=== PATIENT | male | born 1960 | race Caucasian/White ===

== ENCOUNTER 2018-05-13 19:22 | Emergency (ER) | END 2018-05-13 22:21 | disposition home or self-care (01) ==

== ENCOUNTER 2019-01-16 23:25 | Emergency (ER) | payer BC ==
[~2019-01-16] VITALS: Ht 172.7 cm; Wt 88.6 kg
[~2019-01-16 23:25] MED LIST: ASPI-831 GTB; GEMF600T PO; MELO7.5T38 PO; NIAC500T8 PO; UNKNOWN BP MED; UNKNOWN INSULIN SQ
[2019-01-16 23:27] VITALS: Ht 172.7 cm; Wt 88.6 kg
[2019-01-16] MEDS ORDERED: SOD CHLORIDE 0.9% 500 ML IV STA (23:32)
--- NOTE | 2019-01-16 23:32 | ERD ---
ER Documentation Chief Complaint Chief Complaint CP 03/30 1800hrs - down to 07/30 after 3 nitros HPI 58-year-old man with history of CAD status post CABG in 2013 brought in by EMS from home for pressure-like chest discomfort beginning a few hours ago at home while at rest. Patient states the pain has been constant nonradiating nonex ertional, he has had no shortness of breath or dizziness, no diaphoresis, no vomiting, no fevers or chills, no cough. EMS administered aspirin and 3 doses of nitroglycerin with some improvement in his symptoms and he was transported here without further complications ROS All systems reviewed and are negative except as per history of present illness. Medications Home Meds Active Scripts Meloxicam* (Meloxicam*) 7.5 Mg Tablet, 7.5 MG PO DAILY, #30 TAB Prov:SUPA JOSE PA-C 05/13/18 Reported Medications [Unknown Insulin] No Conflict Check, SQ 11/06/13 [Unknown Bp Med] No Conflict Check 11/06/13 Aspirin (Aspirin) 81 Mg Chew, 81 MG GTB 11/06/13 Niacin* (Niacin* ER) 500 Mg Tablet.er, 500 MG PO 11/06/13 Gemfibrozil* (Lopid*) 600 Mg Tablet, 600 MG PO 11/06/13 Allergies Allergies: Coded Allergies: No Known Allergy (Unverified , 11/05/13) PMhx/Soc Hypertension, hyperlipidemia, diabetes mellitus, status post coronary artery bypass graft in 2013 History of Surgery: Yes (CABG) Anesthesia Reaction: No Hx Neurological Disorder: No Hx Respiratory Disorders: No Hx Cardiac Disorders: Yes (CP, HYPERCHOLESTEROLEMIA) Hx Psychiatric Problems: No Hx Miscellaneous Medical Probl: Yes (DM) Hx Alcohol Use: Yes Hx Substance Use: No Hx Tobacco Use: Yes FmHx Family History: No diabetes Physical Exam Vitals Vital Signs Date Temp Pulse Resp B/P (MAP) Pulse Ox O2 O2 Flow FiO2 Time Delivery Rate 01/17/19 75 16 164/80 99 Room Air 01:30 (108) 01/17/19 79 21 161/82 98 Room Air 01:00 (108) 01/17/19 78 18 157/86 99 Room Air 00:44 (109) 01/16/19 97.3 84 14 167/92 100 23:27 (117) Physical Exam GENERAL: Well-developed, well-nourished, well-hydrated, in no apparent distress, looks nontoxic in appearance HEENT: Moist mucous membranes, pink conjunctiva, no cervical spine tenderness or step-off deformities, no goiter, no jaundice or icterus, extraocular movements intact without pain. No submandibular induration, and no pharyngeal erythema NEURO: Alert and oriented 3, cranial nerves II through XII intact bilaterally, pupils equal round reactive to light, no focal deficits or facial asymmetry, sensation intact distally Strength 5/5 in upper and lower extremities bilaterally CARDIAC: Regular rate and rhythm, no murmurs rubs or gallops LUNGS: Clear bilaterally no wheezing crackles or stridor ABDOMEN: Soft nontender, no guarding, no rigidity, no rebound, no psoas sign no obturator sign. Normoactive bowel sounds SKIN: Warm and dry to touch, no abrasions, contusions, or hematomas, no lacerations, no ecchymosis, no target lesions, and without ulcers EXTREMITIES: No clubbing cyanosis or edema, calves are bilaterally symmetrical, no Homans sign, no popliteal cord sign. Distal pulses equal and bilateral PSYCH: Normal affect without agitation or irritability Result Diagram: 01/16/19232701/16/192327 Results 24 hrs Laboratory Tests Test 01/16/19 23:28 White Blood Count 9.6 10^3/ul Red Blood Count 4.66 10^6/ul Hemoglobin 14.2 g/dl Hematocrit 40.3 % Mean Corpuscular Volume 86.5 fl Mean Corpuscular Hemoglobin 30.5 pg Mean Corpuscular Hemoglobin Concent 35.2 g/dl Red Cell Distribution Width 13.2 % Platelet Count 217 10^3/UL Mean Platelet Volume 11.1 fl Immature Granulocytes % 0.700 % Neutrophils % 56.2 % Lymphocytes % 33.9 % Monocytes % 6.5 % Eosinophils % 2.1 % Basophils % 0.6 % Nucleated Red Blood Cells % 0.0 /100WBC Immature Granulocytes # 0.070 10^3/ul Neutrophils # 5.4 10^3/ul Lymphocytes # 3.3 10^3/ul Monocytes # 0.6 10^3/ul Eosinophils # 0.2 10^3/ul Basophils # 0.1 10^3/ul Nucleated Red Blood Cells # 0.0 10^3/ul Prothrombin Time 12.1 Sec Prothrombin Time Ratio 0.9 INR International Normalized Ratio 0.89 Activated Partial Thromboplast Time 30.8 Sec Sodium Level 140 mmol/L Potassium Level 3.9 mmol/L Chloride Level 102 mmol/L Carbon Dioxide Level 26 mmol/L Anion Gap 12 Blood Urea Nitrogen 20 mg/dl Creatinine 1.58 mg/dl Est Glomerular Filtrat Rate mL/min 45 mL/min Glucose Level 328 mg/dl Calcium Level 9.0 mg/dl Total Bilirubin 0.5 mg/dl Direct Bilirubin 0.00 mg/dl Indirect Bilirubin 0.5 mg/dl Aspartate Amino Transf (AST/SGOT) 19 IU/L Alanine Aminotransferase (ALT/SGPT) 12 IU/L Alkaline Phosphatase 66 IU/L Troponin I 0.060 ng/ml B-Type Natriuretic Peptide PG/ML Total Protein 6.8 g/dl Albumin 4.1 g/dl Globulin 2.70 g/dl Albumin/Globulin Ratio 1.51 Lipase 53 U/L Current Medications Medications Dose Sig/Donna Start Time Status Last (Trade) Ordered Route PRN Stop Time Admin Dose Reason Admin Sodium 500 ml @ Q1H STAT 01/16/19 DC 01/16/19 Chloride 500 mls/hr IV 23:32 23:42 01/17/19 00:31 Procedures/MDM IV line was established patient was placed on coal picker rhythm strip revealed a sinus rhythm at about 80 bpm with upright P and T waves. Patient was afebrile EKG performed, read by me revealed a normal sinus rhythm 85 bpm, normal axis, narrow QRS complex, no concerning ST elevations or depressions noted Patient already received aspirin 162 mg p.o. in the field and nitroglycerin sublingual x3 I administered 500 cc normal saline IV One AP view of the chest performed, read by me reveals no acute infiltrates, normal mediastinum, sharp costophrenic and cardiac borders, no air under the diaphragm. Otherwise unremarkable chest x-ray. CBC and electrolytes were unremarkable, liver function tests were normal, troponin was negative I spoke to the on-call physician at [facility] who accepted the patient, family informed and agreed to transfer. Patient will be admitted to telemetry setting at [facility]. Departure Diagnosis: Primary Impression: Chest pain Chest pain type: unspecified Qualified Codes: R07.9 - Chest pain, unspecified Condition: KIARA Perez MD Jan 16, 2019 23:32
[2019-01-17] MEDS ORDERED: NICOTINE (21 MG/24 HR) PATCH TRANSDERM ONE (02:30)
[2019-01-17 04:04] VITALS: BP 148/80; PULSE 72; RESP 18
== END 2019-01-17 04:00 | disposition short-term general hospital (02) ==
LOC: E/R 23:25
DX: I10 Essential (primary) hypertension (principal); E11.9 Type 2 diabetes mellitus without complications; I25.10 Atherosclerotic heart disease of native coronary artery without angina pectoris; Z79.82 Long term (current) use of aspirin; Z87.891 Personal history of nicotine dependence; Z95.1 Presence of aortocoronary bypass graft
CPT/HCPCS: 71045; 80053; 82962; 83690; 83880; 84484; 85025; 85610; 85730; 93005; 96360; J7040; Z7502; Z7610